=== PATIENT | female | born 1980 | race Caucasian/White ===

== ENCOUNTER 2016-10-02 00:24 | Emergency (ER) | payer OTHER ==
[~2016-10-02] VITALS: Ht 160 cm; Wt 108.9 kg
[~2016-10-02 00:24] MED LIST: ACULAR 0.5%5 ML OD; POLYTRIM O200 GTT/BO OPH
[2016-10-02] MEDS ORDERED: DICLOFENAC SODI75 M2 PO (00:54)
[2016-10-02 02:04] VITALS: BP 128/59
--- NOTE | 2016-10-02 02:50 | ED GENERAL ADULT ---
History of Present Illness General Chief Complaint: General Adult Stated Complaint: L WRIST AND R ANKLE PAIN, CHILLS PER PT Source: patient Exam Limitations: no limitations Vital Signs & Intake/Output Vital Signs & Intake/Output Vital Signs Date Time Temp Pulse Resp B/P Pulse O2 O2 Flow FiO2 Ox Delivery Rate 10/02 0204 98.3 92 18 128/59 95 Room Air 10/02 0100 Room Air Allergies Coded Allergies: Sulfa (Sulfonamide Antibiotics) (UNKNOWN 10/02/16) diphenhydramine (Intermediate, TACHYCARDIA 10/02/16) morphine (Intermediate, ITCHING 10/02/16) Reconcile Medications Diclofenac Sodium 75 MG TABLET. 1 TAB PO BID POST STREP INFECTION (Reported ) Oxycodone HCl/Acetaminophen (Percocet 5-325 MG Tablet) 5 MG-325 MG TABLET 1 TAB PO TID PRN PAIN SIX...[id number] Prednisone 50 MG TABLET 1 TAB PO DAILY ARTHRITIS FLARE Triage Note: TRIAGE: PATIENT TO ER FROM HOME REPORTS CURRENTLY HAS POST STREP INFECTION AND IS TAKING VOLTAREN PO FOR INFLAMMATION W/O RELIEF. REPORTING 0/10 L WRIST AND R ANKLE PAIN SINCE THURSDAY, BEGAN DULL AND IS NOW SHARP/THROBBING. DENIES ANY INJURY. Triage Nurses Notes Reviewed? yes Onset: Gradual Duration: day(s):, waxing and waning Timing: recent history Injury Environment: home Severity: mild Modifying Factors: Worsens With: movement. 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 She states that she has left wrist pain and stiffness and swelling, as well as bilateral finger joint swelling for the past 1-2 days. She states in the past she has used steroids with good effect. She also requires pain medications, which she requests as a bridge to seen her maritime guard. She feels occasional chill, but no chest pain shortness of breath nausea vomiting diarrhea or rashes. She is otherwise well. Past History Travel History Traveled to [place] past 21 day No Medical History Any Pertinent Medical History? see below for history Neurological: NONE EENT: POST STREP INFECTION Cardiovascular: NONE Respiratory: NONE Gastrointestinal: NONE Hepatic: NONE Renal: NONE Musculoskeletal: NONE Psychiatric: NONE Endocrine: NONE Blood Disorders: NONE Cancer(s): NONE CERTIFIED PHARMACY TECH/Reproductive: NONE Surgical History Surgical History: non-contributory Psychosocial History Who do you live with Spouse What is your primary language Malaysian Tobacco Use: Never used Family History Hx Contributory? No Review of Systems Review of Systems Constitutional: Reports: no symptoms. EENTM: Reports: no symptoms. Respiratory: Reports: no symptoms. Cardiovascular: Reports: no symptoms. GI: Reports: no symptoms. Genitourinary: Reports: no symptoms. Musculoskeletal: Reports: no symptoms. Skin: Reports: no symptoms. Neurological/Psychological: Reports: no symptoms. Hematologic/Endocrine: Reports: no symptoms. Immunologic/Allergic: Reports: no symptoms. All Other Systems: Reviewed and Negative Physical Exam Physical Exam General Appearance: well developed/nourished, mild distress Head: atraumatic, normal appearance Eyes: Bilateral: normal appearance. Ears, Nose, Throat: normal pharynx, normal ENT inspection Neck: normal inspection, supple, full range of motion Respiratory: normal breath sounds, chest non-tender, no respiratory distress, quiet respiration, lungs clear Cardiovascular: regular rate/rhythm Gastrointestinal: normal bowel sounds, soft, non-tender, no organomegaly Back: normal inspection Extremities: bilateral hands with synovial thickening and mild tenderness at the metacarpal-phalanx joints. also mild effusion at the left wrist. Pain with passive range of motion. No sign of infection. Neurologic/Psych: no motor/sensory deficits, awake, alert, oriented x 3 Skin: intact, normal color, warm/dry Core Measures ACS in differential dx? No CVA/TIA Diagnosis: No Severe Sepsis Present: No Septic Shock Present: No Progress Differential Diagnoses I considered the following diagnoses in my evaluation of the patient: Inflammatory arthritis versus other. I doubt infection Plan of Care: Current Medications Sig/Carey Start time Last Medication Dose Stop Time Status Admin Oxycodone/ 1 TAB ONCE ONE 10/02 299 UNVr Acetaminophen 10/02 300 (Percocet) Prednisone 60 MG ONCE ONE 10/02 299 UNVr 10/02 300 Initial ED EKG: none Departure Departure Disposition: HOME OR SELF CARE Condition: Stable Clinical Impression Primary Impression: Inflammatory arthropathy Referrals: UNKNOWN (PCP/Family) Departure Forms: Customer Survey General Discharge Information Prescriptions: Current Visit Scripts Prednisone 1 TAB PO DAILY #2 TAB Oxycodone HCl/Acetaminophen (Percocet 5-325 MG Tablet) 1 TAB PO TID PRN PAIN #6 TAB SIX...[id number] Comments Patient was no real thickening in her hands and mild effusion of left wrist. She reports this is consistent with her prior arthritic flares. I prescribed a short course of prednisone and Percocet. She will follow up with her maritime guard in the next 1-2 days. Critical Care Note Critical Care Note Critical Care Time: non-applicable
[2016-10-02] MEDS ORDERED: PERCOCET 5-3251 EACH PO (02:55)
[2016-10-02] MEDS ORDERED: PREDNISONE50 M1 PO (02:55)
== END 2016-10-02 03:09 ==
LOC: ERH 00:24
DX: M12.832 Other specific arthropathies, not elsewhere classified, left wrist (principal)